=== PATIENT | male | born 1945 | race Caucasian/White ===

== ENCOUNTER 2019-06-21 15:29 | Inpatient (IN) | payer MEDICARE, BC ==
[~2019-06-21] VITALS: Ht 167.6 cm; Wt 65.9 kg
--- NOTE | 2019-06-21 17:36 | NUR ---
Pt admitted to ICU bed 4 direct admit from [place]. Pt arrived and placed on diagnostic cardiac sonographer. Vitals stable. Denies any pain or other discomforts. Bassam Almodovar APRN, notified of patient admission.
[2019-06-21 17:54] VITALS: BP 106/68; PULSE 84; TEMP 98.1
[2019-06-21 18:18] VITALS: O2SAT 93
--- NOTE | 2019-06-21 18:28 | NUR ---
Admission assessment complete at this time. Plan of care reviewed at bedside with patient et family. Additional time taken to address any other needs or concerns. All questions answered. Vitals stable at time. Denies pain or any other discomfort. Bed in low position, call light within reach, will continue to monitor.
[2019-06-21] MEDS ORDERED: LIPITOR 40MG TA40 MG PO (18:33)
[2019-06-21] MEDS ORDERED: ELIQUIS 5MG PO (18:33)
[2019-06-21] MEDS ORDERED: PRILOSEC 20MG20 MG PO (18:35)
[2019-06-21] MEDS ORDERED: GLUCOPHAGE500 MG/TAB PO (18:37)
--- NOTE | 2019-06-21 19:00 | NUR ---
Bedside report received from Pam CORTEZ. Pt resting in bed at this time with no current complaints except pain on the right with coughing. Spouse and 1 other visitor at bedside although those 2 left and son and daughter in law, Prasanna & Sylwia Gresham, arrived at bedside.
[2019-06-21 20:00] VITALS: BP 104/58; PULSE 85; TEMP 97.7
[2019-06-21 22:27] LABS: PARTIAL THROMBOPLASTIN TIME 35.3 SECONDS (26.0-37.0)
[2019-06-21 23:36] VITALS: O2SAT 95
[2019-06-22] VITALS (587 sets, daily range): BP systolic 118–128; BP diastolic 66–84; PULSE 86–100; TEMP 97.8–98.6; O2SAT 70–99
[2019-06-22 05:03] LABS: HEMOGLOBIN 11.6 g/dl (13.5-18.0); MEAN CELL VOLUME 96 fl (80.0-100.0); MEAN CORPUSCULAR HEMOGLOBIN 31 pg (27.0-31.0); MEAN CORPUSCULAR HGB CONC 33 g/dl (33.0-37.0); MEAN PLATELET VOLUME 10.9 fl (7.4-10.4); PLATELET COUNT 119 K/mm3 (130-400); RED BLOOD COUNT 3.69 M/mm3 (4.20-5.60); REDCELL DISTRIBUTION WIDTH-CV 13.5 % (11.5-14.5)
[2019-06-22 05:06] LABS: HEMATOCRIT 35.3 % (42.0-52.0)
[2019-06-22 05:13] LABS: ALBUMIN 3.4 gm/dL (3.5-5.0); BILIRUBIN,TOTAL 1.2 mg/dL (0.0-1.0); CREATININE, serum 1.1 (0.66-1.25); MAGNESIUM 1.5 mg/dL (1.6-2.3); TOTAL PROTEIN 6.2 gm/dL (6.4-8.2)
[2019-06-22 05:25] LABS: BAND 31 % (0-10); LYMPHOCYTE 3 % (20.0-51.0); METAMYELOCYTE 2 % (0-0); NEUTROPHILS 63 % (42.0-75.2); PLATELET ESTIMATE NORMAL (NORMAL)
[2019-06-22 05:26] LABS: BURR CELLS 1+
--- NOTE | 2019-06-22 07:20 | NUR ---
Report provided to Winston Kraus RN. Pt resting in bed watching television at this time.
--- NOTE | 2019-06-22 07:59 | NUR ---
PATIENT ASSESSED, VITALS STABLE, DENIES PAIN BESIDES SORENESS IN RIGHT RIBS FROM COUGHING. NO QUESTIONS OR CONCERNS FROM PATIENT. WILL CONTINUE TO MONITOR.
--- NOTE | 2019-06-22 10:17 | NUR ---
LORA met with the patient and patient's , Shena, to discuss discharge plan. The patient lives in [place] with his . He reports independence with ADLs and does not use any assistive devices. He states that he plays golf everyday. He does have a CPAP. The patient's PCP is Dr. Leandro Koch in [place] and he receives his medications at [facility]. He reports no difficulties obtaining his meds. The patient's provided LORA with a copy of his DPOA-HC and Living Will. LORA placed in the patient's chart. The patient's DPOA-HC is his . The first alternate is his son, Prasanna Gresham, and the third alternate is his [id number], Mckayla Syed. The patient plans to return home with his upon discharge. No additional needs at this time.
--- NOTE | 2019-06-22 12:14 | NUR ---
First visit from the brass instrument repair technician. No needs right now.
--- NOTE | 2019-06-22 13:17 | NUR ---
HEPARIN DISCONTINUED PER DR. HAYS'S ORDERS.
--- NOTE | 2019-06-22 19:35 | NUR ---
REPORT GIVEN TO DIEGO BORJA.
[2019-06-23] VITALS (629 sets, daily range): BP systolic 115–147; BP diastolic 0–102; PULSE 79–103; TEMP 98–100.7; O2SAT 73–98
[2019-06-23 04:59] LABS: HEMOGLOBIN 11.2 g/dl (13.5-18.0); MEAN CELL VOLUME 96 fl (80.0-100.0); MEAN CORPUSCULAR HEMOGLOBIN 31 pg (27.0-31.0); MEAN CORPUSCULAR HGB CONC 33 g/dl (33.0-37.0); MEAN PLATELET VOLUME 10.9 fl (7.4-10.4); PLATELET COUNT 126 K/mm3 (130-400); RED BLOOD COUNT 3.57 M/mm3 (4.20-5.60); REDCELL DISTRIBUTION WIDTH-CV 13.7 % (11.5-14.5)
[2019-06-23 05:10] LABS: ALBUMIN 3.3 gm/dL (3.5-5.0); BILIRUBIN,TOTAL 0.9 mg/dL (0.0-1.0); CREATININE, serum 0.86 (0.66-1.25); POTASSIUM 4.5 mmol/L (3.4-5.0); TOTAL PROTEIN 6.3 gm/dL (6.4-8.2)
[2019-06-23 05:20] LABS: HEMATOCRIT 34.3 % (42.0-52.0)
[2019-06-23 06:20] LABS: BAND 10 % (0-10); LYMPHOCYTE 2 % (20.0-51.0); METAMYELOCYTE 2 % (0-0); NEUTROPHILS 84 % (42.0-75.2)
[2019-06-23 06:21] LABS: PLATELET ESTIMATE DECREASED (NORMAL)
--- NOTE | 2019-06-23 07:40 | NUR ---
Pt sitting up in bed, alert and oriented x4, pt denies pain and SOB.
--- NOTE | 2019-06-23 12:52 | NUR ---
CALLED REPORT TO DIEGO EDWARDS ON MEDICAL FLOOR. PT TO BE GOING TO RM 311 VIA .
--- NOTE | 2019-06-23 13:18 | NUR ---
PT TO MEDICAL FLOOR RM 311 VIA WC. PT HAS ALL PERSONAL ITEMS. DIEGO EDWARDS INFORMED AT NURSES STATION, PT IN ROOM. CHART IN RACK ON MEDICAL FLOOR.
--- NOTE | 2019-06-23 13:37 | NUR ---
Pt arrived to room 311 at this time. He is A/O x3. His breathing is even and unlabored on 1L O2 via NC. Pt requesting to shower, O2 removed and sat's obtained, pt at 93%. Pt advised if needed for ease of breathing pt can wear O2. Expiratory wheezes bilaterally, productive cough present blood tinged sputum. Pt denies any pain. No N/V. Pt denies any needs, POC discussed. Will continue to monitor.
--- NOTE | 2019-06-23 19:50 | NUR ---
Patient assessed at this time. Alert and oriented x 4, and able to make needs known. Denies having pain and discomfort. Peripheral IVs to left AC and wrist flushed. Sites are without redness, warmth, swelling, and pain. When flushing site to right AC, site was very tender/sore, with some redness and swelling. IV D/C'd to right AC. Denies having SOB and dyspnea. LS with expiratory wheezes. Respirations even and unlabored. Patient on room air. HRR. BSAx4. Abdomen soft and non-tender. No edema noted. Voices no questions, needs, or concerns at this time. Sitting up watching TV at this time. Call light is within reach.
[2019-06-24] VITALS (7 sets, daily range): BP systolic 110–139; BP diastolic 61–80; PULSE 94–112; TEMP 98.2–98.7
[2019-06-24 06:35] LABS: BASO % 0.1 % (0.0-2.0); EOS # 0.1 (0.0-0.7); EOS % 0.3 % (0-4.0); GRAN # 14.4 (1.4-6.5); GRAN % 89.3 % (42.2-75.2); HEMOGLOBIN 10.6 g/dl (13.5-18.0); MEAN CELL VOLUME 95 fl (80.0-100.0); MEAN CORPUSCULAR HEMOGLOBIN 31 pg (27.0-31.0); MEAN CORPUSCULAR HGB CONC 33 g/dl (33.0-37.0); MEAN PLATELET VOLUME 11.6 fl (7.4-10.4); MONO # 0.5 (0.1-0.6); MONO % 3.2 % (1.7-9.3); PLATELET COUNT 128 K/mm3 (130-400); REDCELL DISTRIBUTION WIDTH-CV 13.7 % (11.5-14.5)
--- NOTE | 2019-06-24 06:35 | NUR ---
Denies having pain and discomfort. Voices no questions, needs, or concerns at this time. Sitting up in room watching TV at this time. Call light is within reach. Remains on room air at this time. Denies having SOB and dyspnea.
[2019-06-24 06:36] LABS: HEMATOCRIT 32.4 % (42.0-52.0)
[2019-06-24 06:41] LABS: ALBUMIN 3.2 gm/dL (3.5-5.0); BILIRUBIN,TOTAL 1.2 mg/dL (0.0-1.0); CALCIUM 8.3 mg/dL (8.4-10.2); CREATININE, serum 0.72 (0.66-1.25); POTASSIUM 3.8 mmol/L (3.4-5.0); TOTAL PROTEIN 6.1 gm/dL (6.4-8.2)
--- NOTE | 2019-06-24 09:34 | NUR ---
Pt assessment complete. Pt sitting up in his chair this morning, just finished with breakfast, at bedside. Pt denies any pain at this time. SOB on exertion, worsens when coughing. Pt denies N/V, ate breakfast without issues. POC discussed with patient and his . No needs at this time. Call light within reach.
--- NOTE | 2019-06-24 18:34 | NUR ---
Pt had uneventful day. He remained on RA through the day. Denied pain. POC discussed with patient and who verbalize understanding. Isolation precautions in place. Call light within reach.
--- NOTE | 2019-06-24 21:29 | NUR ---
ASSESSMENT COMPLETE. PT ASLEEP IN CHAIR WITH C PAP ON. DENIES ANY NEEDS AT THIS TIME. HS MEDS GIVEN.
--- NOTE | 2019-06-24 23:56 | NUR ---
Continues to sit in chair. Voices no c/o. IV antibiotic given in INT L wrist. Tolerates well. Call light within reach.
[2019-06-25 03:52] VITALS: BP 147/78; PULSE 100; TEMP 98.5
--- NOTE | 2019-06-25 06:33 | NUR ---
Pt remained afebrile this shift. Put mask on to ambulate in [place] this AM. Denies any c/o pain, SOA.
[2019-06-25 07:58] VITALS: BP 134/66; PULSE 71; TEMP 98.3
[2019-06-25 08:12] LABS: BASO % 0.2 % (0.0-2.0); EOS # 0.2 (0.0-0.7); EOS % 1.4 % (0-4.0); GRAN # 8.8 (1.4-6.5); GRAN % 81.8 % (42.2-75.2); HEMOGLOBIN 11.3 g/dl (13.5-18.0); LYMPH % 8.8 % (20.0-51.0); MEAN CELL VOLUME 95 fl (80.0-100.0); MEAN CORPUSCULAR HEMOGLOBIN 31 pg (27.0-31.0); MEAN CORPUSCULAR HGB CONC 33 g/dl (33.0-37.0); MEAN PLATELET VOLUME 11.4 fl (7.4-10.4); MONO # 0.8 (0.1-0.6); MONO % 7.1 % (1.7-9.3); PLATELET COUNT 146 K/mm3 (130-400); RED BLOOD COUNT 3.61 M/mm3 (4.20-5.60); REDCELL DISTRIBUTION WIDTH-CV 13.5 % (11.5-14.5)
[2019-06-25 08:25] LABS: HEMATOCRIT 34.1 % (42.0-52.0)
--- NOTE | 2019-06-25 08:32 | NUR ---
PATIENT ASSESSMENT COMPLETED. HE HAS BEEN AMBULATING IN THE HALLWAY THIS MORNING. HE REPORTS HE IS FEELING BETTER. DOES HAVE LITTLE SOB WITH ACTIVITY BUT RESOLVES EASILY. HE NOW HAS A NON-PRODUCTIVE COUGH. NO OTHER NEEDS EXPRESSED AT THIS TIME.
[2019-06-25 08:35] LABS: CALCIUM 8.7 mg/dL (8.4-10.2); CREATININE, serum 0.68 (0.66-1.25); POTASSIUM 3.4 mmol/L (3.4-5.0)
[2019-06-25] MEDS ORDERED: OMNICEF 300MG300 MG PO (09:07)
[2019-06-25] MEDS ORDERED: PROAIR HFA0.09 MG/AC IH (09:07)
--- NOTE | 2019-06-25 11:12 | NUR ---
PATIENT DISCHARGE INFORMATION REVIEWED WITH PATIENT AND . WE HAVE CLARIFIED WITH [facility] THAT NO PULMONARY FOLLOW UP APPOINTMENT IS NEEDED IF PCP WOULD LIKE TO REFER THAT WOULD BE UP TO THEM. THEY DENY FURTHER QUESTIONS. BELONGINGS ARE ALL SENT HOME WITH THE PATIENT.
== END 2019-06-25 11:00 | disposition home or self-care (01) | DRG 871 ==
LOC: ICU 15:29 → MEDICAL 06-23 14:13
PROVIDERS: Nurse Practitioner; Physician Assistant; ADMIT Internal Medicine
DX: A41.9 Sepsis, unspecified organism (principal); J18.1 Lobar pneumonia, unspecified organism; N17.9 Acute kidney failure, unspecified; I48.91 Unspecified atrial fibrillation; R65.20 Severe sepsis without septic shock; G47.33 Obstructive sleep apnea (adult) (pediatric); E11.9 Type 2 diabetes mellitus without complications; I25.10 Atherosclerotic heart disease of native coronary artery without angina pectoris; B97.89 Other viral agents as the cause of diseases classified elsewhere; Z95.0 Presence of cardiac pacemaker; Z95.1 Presence of aortocoronary bypass graft; Z79.01 Long term (current) use of anticoagulants; Z79.84 Long term (current) use of oral hypoglycemic drugs; Z87.891 Personal history of nicotine dependence
CPT/HCPCS: 99222; 99223-AI; 99232-AI; 99239; A4216; J0456; J0692; J1644; J1815; J3370; J3475; J7030; J7050; Q9967